=== PATIENT | male | born 1980 | race African-American/Black ===

== ENCOUNTER → 2017-05-02 21:24 | Emergency (ER) | payer SELFPAY | END | disposition left against medical advice (07) | LOC: ER 21:24 | DX: R51 Headache (principal); Z53.21 Procedure and treatment not carried out due to patient leaving prior to being seen by health care provider ==

== ENCOUNTER 2018-12-24 19:06 | Emergency (ER) | payer OTHER ==
[~2018-12-24] VITALS: Ht 177.8 cm; Wt 88.0 kg
[2018-12-24] MEDS ORDERED: AMOX875T PO (20:01)
--- NOTE | 2018-12-24 20:01 | PHYS DOC ---
Past Medical History Past Medical History: Hypertension (REINALDO FUENTES APRN) Past Surgical History: Other Additional Past Surgical Histo: L WRIST (REINALDO FUENTES APRN) Additional Information: 0.5 PPD Alcohol Use: Occasionally Drug Use: Marijuana (REINALDO FUENTES APRN) Adult General Chief Complaint Chief Complaint: Congestion HPI HPI Patient is a 38-year-old male who presents to the ER with L ear pain. Associated symptoms include congestion, headaches, coughing, sneezing, and left eye watering. Symptoms have been ongoing since Friday not been improving. Pain is a Severity of 10 out of 10 and throbbing. Tried ibuprofen around 610. States this did not help. (REINALDO FUENTES APRN) Review of Systems Review of Systems Constitutional: Denies fever or chills [] Eyes: Denies change in visual acuity, redness, or eye pain [] HENT: Reports nasal congestion. Denies Sore throat. Reports L Ear pain. Respiratory: Reports cough. Denies shortness of breath Cardiovascular: No additional information not addressed in HPI [] GI: Denies abdominal pain, nausea, vomiting, bloody stools or diarrhea [] : Denies dysuria or hematuria [] Musculoskeletal: Denies back pain or joint pain [] Integument: Denies rash or skin lesions [] Neurologic: Reports headache. Denies focal weakness or sensory changes [] Endocrine: Denies polyuria or polydipsia [] Complete systems were reviewed and found to be within normal limits, except as documented in this note. (REINALDO FUENTES APRN) Current Medications Current Medications Current Medications Medications (Trade) Dose Ordered Sig/Melita Start Time Stop Time Status Last Admin Dose Admin Dexamethasone (Decadron) 10 mg 1X STAT 12/24/18 20:02 12/24/18 20:03 DC 12/24/18 20:07 10 MG (GOLLAPALLI,ISIDRA E DO) Allergies Allergies Allergies Coded Allergies Type Severity Reaction Last Updated Verified No Known Drug Allergies 12/24/18 No (GOLLAPALLI,ISIDRA E DO) Physical Exam Physical Exam Constitutional: Well developed, well nourished, no acute distress, non-toxic appearance. [] HENT: Normocephalic, atraumatic, bilateral external ears normal, Left middle ear has erythema with effusion. oropharynx moist, no oral exudates, nose turbinates are red. [] Eyes: PERRLA, EOMI, conjunctiva normal, no discharge. [] Neck: Normal range of motion, no tenderness, supple, no stridor. [] Cardiovascular:Heart rate regular rhythm, no murmur [] Lungs & Thorax: Bilateral breath sounds clear to auscultation [] Abdomen: Soft, no tenderness, no masses, no pulsatile masses. [] Skin: Warm, dry, no erythema, no rash. [] Back: No tenderness, no CVA tenderness. [] Extremities: No tenderness, no cyanosis, no clubbing, ROM intact, no edema. [] Neurologic: Alert and oriented X 3, normal motor function, normal sensory function, no focal deficits noted. [] Psychologic: Affect normal, judgement normal, mood normal. [] (REINALDO FUENTES APRN) Current Patient Data Vital Signs Vital Signs Date Time Temp Pulse Resp B/P (MAP) Pulse Ox O2 Delivery O2 Flow Rate FiO2 12/24/18 20:10 82 20 176/116 (136) 98 12/24/18 19:24 98.6 Room Air 98.6 (ISIDRA CANTU DO) EKG EKG [] (REINALDO FUENTES APRN) Radiology/Procedures Radiology/Procedures [] (REINALDO FUENTES APRN) Course & Med Decision Making Course & Med Decision Making Pertinent Labs and Imaging studies reviewed. (See chart for details) Discussed signs and symptoms with patient. Clinical exam revealed L Otitis Media w/ effusion. Will prescribe antibiotic and give dexamethasone in the ER. Recommend taking daily Zyrtec for allergies. Patient is agreeable to the plan of care and will send home. (REINALDO FUENTES APRN) Dragon Disclaimer Dragon Disclaimer This electronic medical record was generated, in whole or in part, using a voice recognition dictation system. (REINALDO FUENTES APRN) Dragon Disclaimer The mid-level provider has independently evaluated and treated this patient. I was available for consultation throughout the patient care by the mid-level provider. I agree with the care provided by the mid-level provider (ISIDRA CANTU DO) Departure Departure Impression: Primary Impression: Otitis media Disposition: HOME, SELF-CARE Condition: STABLE Referrals: NO PCP (PCP) Patient Instructions: Otitis Media with Effusion Additional Instructions: Please follow up with PCP as needed. Take Zyrtec OTC and Flonase OTC. Take all of your antibiotics. Scripts Amoxicillin (AMOXICILLIN) 875 Mg Tablet 1 TAB PO BID for 7 Days, #14 TAB Prov: REINALDO FUENTES APRN 12/24/18 Problem Qualifiers Primary Impression: Otitis media Otitis media type: allergic Chronicity: acute Laterality: left Recurrence: non-recurrent Qualified Codes: H65.112 - Acute and subacute allergic otitis media (mucoid) (sanguinous) (serous), left ear REINALDO FUENTES APRN December 24, 2018 20:01 ISIDRA CANTU DO December 25, 2018 06:08
[2018-12-24] MEDS ORDERED: DEXAMETHASONE 4 MG TABLET PO STA (20:02)
[2018-12-24 20:10] VITALS: BP 176/116
== END 2018-12-24 20:10 | disposition home or self-care (01) ==
LOC: ER 19:06
DX: H65.112 Acute and subacute allergic otitis media (mucoid) (sanguinous) (serous), left ear (principal); R09.81 Nasal congestion; R51 Headache; R05 Cough; R06.7 Sneezing; F17.200 Nicotine dependence, unspecified, uncomplicated
CPT/HCPCS: 99284; J8540